=== PATIENT | male | born 1970 | race Caucasian/White ===

== ENCOUNTER 2017-07-27 10:23 | Observation (INO) ==
--- NOTE | 2017-07-27 10:32 | Emergency Department Note ---
Disposition Clinical Impression: Change in vision TIA (transient ischemic attack) Qualifiers: Transient cerebral ischemia type: unspecified Qualified Code(s): G45.9 - Transient cerebral ischemic attack, unspecified Disposition: Admitted As Inpatient Condition: Good Referrals: Ghassan Shore MD [Primary Care Provider] - Forms: ED Satisfaction Letter Time of Disposition: 12:42 Eye Problem HPI - General Chief complaint: ED Eye Problems Stated complaint: blurred vision Time Seen by Provider: 07/27/17 10:26 Source: patient Mode of arrival: ambulatory Limitations: no limitations Nursing Notes Reviewed: Yes Vital Signs Reviewed: Yes - History of Present Illness HPI Narrative: Patient is a 47-year-old male with no past medical history. Presents today due to complaint of left vision change. He states that yesterday afternoon, he had sudden onset blurred vision of the left eye. He also had "white spots" in his vision. Denies any black spots or visual loss. He has had a mild left-sided headache at that time. Denies any numbness, tingling, weakness, any other chest pain, shortness of breath, nausea, vomiting, fevers, diarrhea, neck pain, abdominal pain. He states that this episode lasted for about 45 minutes and then went away. He says that his vision is improved today but is concerned for possible stroke and is requesting a head CT scan. - Related Data Home Medications Medication Instructions Recorded Confirmed Amlodipine Besylate [Amlodipine 10 mg PO DAILY 07/27/17 07/27/17 Besylate] Aspirin [Lo-Dose Aspirin EC] 81 mg PO DAILY 07/27/17 07/27/17 Losartan/Hydrochlorothiazide 1 tab PO DAILY 07/27/17 07/27/17 [Losartan-Hctz 100-25 mg Tab] Nebivolol HCl [Bystolic] 10 mg PO DAILY 07/27/17 07/27/17 Allergies Allergy/AdvReac Type Severity Reaction Status Date / Time No Known Allergies Allergy Verified 07/27/17 12:29 All systems ED: reviewed and negative except as stated. Constitutional: Denies: fever Eyes: Reports: vision change. Denies: eye pain Cardiovascular: Denies: chest pain Respiratory: Denies: cough, dyspnea, wheezes Gastrointestinal: Denies: abdominal pain, nausea, vomiting, diarrhea Genitourinary: Denies: urgency, dysuria, frequency Musculoskeletal: Denies: back pain, neck pain Neurological: Denies: headache, weakness, numbness, paresthesias Past Medical History - Past Medical History Attestation: Yes The following information was validated with the patient. Source: patient Medical history: Reports: non-contributory - Social History Smoking Status: Never smoker Smokeless Tobacco Status: No Alcohol use: Reports: none Physical Exam - General Limitations: no limitations General appearance: alert, in no apparent distress - Head Head exam: atraumatic, normocephalic, normal inspection - Eye Eye exam: Present: normal appearance, PERRL, EOMI - Expanded Eye Exam Eyelids: bilateral: normal inspection Pupils: Bilateral: regular, round Sclera/Conjunctival: bilateral: normal inspection Cornea: bilateral: Normal Inspection Visual acuity (R) = 20/: 20 Visual acuity (L) = 20/: 25 IOP (R) in mmH IOP (L) in mmH IOP measured with: Tonopen - ENT ENT exam: normal exam, normal oropharynx, mucous membranes moist - Neck Neck exam: Present: normal inspection, full ROM, trachea midline - Chest Chest inspection: Present: normal inspection, symmetric chest wall rise - Respiratory Respiratory exam: Present: normal lung sounds bilaterally - Cardiovascular Cardiovascular exam: Present: regular rate, normal rhythm, normal heart sounds - Abdominal Exam Abdominal exam: Present: soft, Non-Tender. Absent: tenderness, distention, guarding, rebound, rigidity - Extremities Exam Extremities exam: Present: normal inspection, full ROM. Absent: tenderness, pedal edema - Neurological Exam Neurological exam: Present: alert, oriented X3, CN II-XII intact. Absent: motor sensory deficit - Expanded Neurological Exam Patient oriented to: Present: person, place, time Speech: Present: fluid speech Cranial nerves: EOM function (II, III, IV, ): Normal, facial sensation (V): Normal, facial palsy (VII): Normal, spinal accessory function (XI): Normal, tongue deviation (XII): Normal Motor strength - LUE: 5/5 Motor strength - RUE: 5/5 Motor strength - LLE: 5/5 Motor strength - RLE: 5/5 Sensory exam upper extremity: light touch: Normal Sensory exam lower extremity: light touch: Normal Coma Scale Eye Opening: Spontaneous Coma Scale Motor Response: Obeys Commands Coma Scale Verbal Response: Oriented Coma Scale Total: 15 - Psychiatric Psychiatric exam: Present: normal affect, normal mood - Skin Skin exam: Present: warm, dry, intact, normal color Course Course Narrative: Procedure: OCular US Indication: left eye vision change Findings: optic nerve on right 5.5mm, optic nerve on left 5mm; no evidence of retinal detachment bilaterally I pressures measured bilaterally, right eye pressures 16, left eye pressure 24. We discussed concern for glaucoma. There are no signs of any acute angle closure glaucoma, no treatment required at this time in the emergency department. We discussed having him follow-up with ophthalmology for further assessment and care for this issue. Ultrasound showed no signs of retinal detachment or optic nerve enlargement. CT the head was negative for any acute process. Patient will be admitted to hospitalist for further TIA workup. Vital Signs Temperature 98.4 F 07/27/17 10:26 Pulse Rate 72 07/27/17 10:26 Respiratory Rate 20 07/27/17 10:26 Blood Pressure 146/79 07/27/17 10:26 O2 Sat by Pulse Oximetry 95 07/27/17 10:26 Temperature 98.4 F 07/27/17 10:32 Pulse Rate 68 07/27/17 12:21 Respiratory Rate 18 07/27/17 12:21 Blood Pressure 145/84 07/27/17 12:21 O2 Sat by Pulse Oximetry 98 07/27/17 12:21 Oxygen Delivery Oxygen Delivery Room Air Eye - MDM Narrative Medical decision making narrative: Procedure: OCular US Indication: left eye vision change Findings: optic nerve on right 5.5mm, optic nerve on left 5mm; no evidence of retinal detachment bilaterally I pressures measured bilaterally, right eye pressures 16, left eye pressure 24. We discussed concern for glaucoma. There are no signs of any acute angle closure glaucoma, no treatment required at this time in the emergency department. We discussed having him follow-up with ophthalmology for further assessment and care for this issue. Ultrasound showed no signs of retinal detachment or optic nerve enlargement. CT the head was negative for any acute process. Patient will be admitted to hospitalist for further TIA workup. - Lab Data Result diagrams: 07/27/17 11:21 07/27/17 11:21 Lab Results 07/27/17 07/27/17 Range/Units 11:21 11:21 WBC 7.5 (4.3-11.1) K/mcL RBC 4.97 (4.19-5.50) M/mcL Hgb 15.3 (12.9-16.9) g/dL Hct 42.1 (37.5-50.1) % MCV 84.7 (83.0-100.0) fL MCH 30.8 (28.0-33.3) pg MCHC 36.3 H (31.6-35.5) g/dL RDW 13.1 (11.5-14.5) % Plt Count 293 (140-400) K/mcL MPV 9.4 (9.4-12.4) fL Immature Gran % 0.3 (0-4) % Seg Neutrophils % 54.7 % Lymphocytes % 34.0 % Monocytes % 9.2 % Eosinophils % 1.5 % Basophils % 0.3 % Neutrophils # 4.1 (1.6-8.9) K/mcL Lymphocytes # 2.5 (0.6-4.6) K/mcL Monocytes # 0.7 (0.0-1.3) K/mcL Eosinophils # 0.1 (0.0-0.6) K/mcL Basophils # 0.0 (0.0-0.2) K/mcL Sodium 137 (136-145) mEq/L Potassium 3.7 (3.5-5.1) mEq/L Chloride 104 (98-107) mEq/L Carbon Dioxide 27 (23-29) mEq/L BUN 16 (6-20) mg/dL Creatinine 0.81 (0.70-1.30) mg/dL Est GFR ( Amer) > 60 (> 60) Est GFR (Non-Af Amer) > 60 (> 60) BUN/Creatinine Ratio 20 (6-26) Glucose 101 (70-105) mg/dL Calculated Osmolality 285 (280-300) Calcium 10.0 (8.6-10.3) mg/dL S.B.A.RMikayla - S.Tony.Jacinta Situation: Demographics, MOA Background: Presenting Complaint, Relevant PMH, Meds, & Allergies Assessment: Vital Signs, Course and respsone to treatment, Exam Concerns, Patient/Family Expectation, Pertinant Lab Results, Outstanding Labs Recommendation: Barrier(s) to disposition, Recommendation based on pending studies, treatments, or consults S.B.A.RMikayla Report Given to: Dr. Marion Diaz Repor Time: 12:42 NIH Stroke Scale - Level of Consciousness LOC: Alert - LOC Questions LOC Questions: Answers both correctly - LOC Commands LOC Commands: Performs both correctly - Best Gaze Best Gaze: Normal - Visual Visual: No visual loss - Facial Palsy Facial Palsy: Normal - Motor Arms Motor Arm-Left: No drift for 10 seconds Motor Arm-Right: No drift for 10 seconds - Motor Legs Motor Leg-Left: No drift for 5 seconds Motor Leg-Right: No drift for 5 seconds - Limb Ataxia Limb Ataxia: Absent of affected limb too weak to perform exam - Sensory Sensory: Normal - Best Language Best Language: No aphasia - Dysarthria Dysarthria: Normal - Extinction and Inattention Extinction and Inattention: Normal - NIHSS Total Score NIHSS Total Score: 0
[2017-07-27] MEDS ORDERED: Tetracaine 0.5% OPTH 80 DROP/4 ML BOTTLE LEFT EYE ONE (10:46)
[2017-07-27] MEDS ORDERED: Tetracaine 0.5% OPTH 80 DROP/4 ML BOTTLE RIGHT EYE ONE (10:47)
[2017-07-27 11:48] LABS: Basophils % 0.3 %; Eosinophils # 0.1 K/mcL (0.0-0.6); Eosinophils % 1.5 %; Hematocrit 42.1 % (37.5-50.1); Hemoglobin 15.3 g/dL (12.9-16.9); Immature Granulocytes % 0.3 % (0-4); Lymphocytes # 2.5 K/mcL (0.6-4.6); Mean Corpuscular HGB Conc 36.3 g/dL (31.6-35.5); Mean Corpuscular Hemoglobin 30.8 pg (28.0-33.3); Mean Corpuscular Volume 84.7 fL (83.0-100.0); Mean Platelet Volume 9.4 fL (9.4-12.4); Monocytes # 0.7 K/mcL (0.0-1.3); Monocytes % 9.2 %; Neutrophils # 4.1 K/mcL (1.6-8.9); Platelet Count 293 K/mcL (140-400); Red Blood Count 4.97 M/mcL (4.19-5.50); Red Cell Distribution Width 13.1 % (11.5-14.5); Segmented Neutrophils % 54.7 %
--- NOTE | 2017-07-27 12:13 | Emergency Department Note ---
Disposition Clinical Impression: TIA (transient ischemic attack) Qualifiers: Transient cerebral ischemia type: unspecified Qualified Code(s): G45.9 - Transient cerebral ischemic attack, unspecified Disposition: Admitted As Inpatient Referrals: Ghassan Shore MD [Primary Care Provider] - Forms: ED Satisfaction Letter General Adult HPI - General Chief complaint: ED Eye Problems Stated complaint: blurred vision Time Seen by Provider: 07/27/17 10:26 Source: patient Mode of arrival: ambulatory Limitations: no limitations - History of Present Illness Pain Scale: 0 - Related Data Home Medications Medication Instructions Recorded Confirmed Blood Pressure Medication 07/26/17 Allergies Allergy/AdvReac Type Severity Reaction Status Date / Time No Known Allergies Allergy Verified 07/26/17 16:10 Constitutional: Denies: fever Eyes: Reports: vision change. Denies: eye pain Cardiovascular: Denies: chest pain Respiratory: Denies: cough, dyspnea, wheezes Gastrointestinal: Denies: abdominal pain, nausea, vomiting, diarrhea Genitourinary: Denies: urgency, dysuria, frequency Musculoskeletal: Denies: back pain, neck pain Neurological: Denies: headache, weakness, numbness, paresthesias Past Medical History - Past Medical History Medical history: Reports: non-contributory Psychiatric history: Reports: no psych history - Social History Smoking Status: Never smoker Smokeless Tobacco Status: No Alcohol use: Reports: none Drug use: Reports: none Physical Exam - General Limitations: no limitations General appearance: alert, in no apparent distress Course Vital Signs Temperature 98.4 F 07/27/17 10:26 Pulse Rate 72 07/27/17 10:26 Respiratory Rate 20 07/27/17 10:26 Blood Pressure 146/79 07/27/17 10:26 O2 Sat by Pulse Oximetry 95 07/27/17 10:26 Temperature 98.4 F 07/27/17 10:32 Pulse Rate 56 07/27/17 11:43 Respiratory Rate 18 07/27/17 11:43 Blood Pressure 144/87 07/27/17 11:43 O2 Sat by Pulse Oximetry 98 07/27/17 11:43 Oxygen Delivery Oxygen Delivery Room Air Medical Decision Making - Lab Data Result diagrams: 07/27/17 11:21 Lab Results 07/27/17 Range/Units 11:21 WBC 7.5 (4.3-11.1) K/mcL RBC 4.97 (4.19-5.50) M/mcL Hgb 15.3 (12.9-16.9) g/dL Hct 42.1 (37.5-50.1) % MCV 84.7 (83.0-100.0) fL MCH 30.8 (28.0-33.3) pg MCHC 36.3 H (31.6-35.5) g/dL RDW 13.1 (11.5-14.5) % Plt Count 293 (140-400) K/mcL MPV 9.4 (9.4-12.4) fL Immature Gran % 0.3 (0-4) % Seg Neutrophils % 54.7 % Lymphocytes % 34.0 % Monocytes % 9.2 % Eosinophils % 1.5 % Basophils % 0.3 % Neutrophils # 4.1 (1.6-8.9) K/mcL Lymphocytes # 2.5 (0.6-4.6) K/mcL Monocytes # 0.7 (0.0-1.3) K/mcL Eosinophils # 0.1 (0.0-0.6) K/mcL Basophils # 0.0 (0.0-0.2) K/mcL Attestation Statement - Attestation Attestation: I examined this patient and my medical decision-making was reviewed with the Resident Physician. I agree with the documented findings, disposition and treatment plan as described except to the extent set forth below. 47 year old male presents to the eD with complanitso f blurred vision and headache which have resoved completely. He sttes that he has had headache that woke up him from sleep last night located in the left temporal area and that it was retroorbital but then developed blurred vision and his IOP inthe left side is 24 and right side is 17. WE will admit to medicine for TIA r/o CVA. HCT (-) US is negative for retinal detachement/optic nerve swelling
[2017-07-27 12:39] LABS: BUN/Creatinine Ratio 20 (6-26); Blood Urea Nitrogen 16 mg/dL (6-20); Carbon Dioxide 27 mEq/L (23-29); Chloride 104 mEq/L (98-107); Glucose 101 mg/dL (70-105); Osmolality,Calculated 285 (280-300); Potassium 3.7 mEq/L (3.5-5.1); Sodium 137 mEq/L (136-145); eGFR For African Americans > 60 (> 60); eGFR For Non-African Americans > 60 (> 60)
[2017-07-27] MEDS ORDERED: Acetaminophen 325 MG TABLET PO PRN (14:01)
[2017-07-27] MEDS ORDERED: Naloxone 0.4 MG/ML INJ IVP PRN (14:01)
--- NOTE | 2017-07-27 15:02 | Internal Med History&Physical ---
<JoanrebamarkRomaine - Last Filed: 07/27/17 15:27> Date of Encounter: 07/27/17 Time of Encounter: 13:30 Internal Medicine - H&P: HPI Chief complaint: Vision changes Admitted From: Emergency Dept Plans for Post Hospital Care: Home History of present illness: Mr. Steven is a 47 year old male w/PMH of HTN presents from the ED w/CC of blurriness in his left eye yesterday afternoon for 45 minutes. Sx resolved after 45 minutes. Denies previous occurrence. No aggravating/alleviating factors. Mild GARCIA w/sx. Denies focal weakness, facial droop, or numbness/ tingling. Denies familial or personl hx of CVA/TIA. Patient denies recent illness, fever, chills, nausea, vomiting, chest pain, palpitations, unusual bleeding, abdominal pain, diarrhea, constipation, numbness, tingling, dizziness , lightheadedness, pre-syncope, or syncope. Past Med Surg Social Fam HX - Past Medical History Source: patient, old records reviewed, obtained from family Medical history: hypertension Psychiatric history: no psych history - Social History Smoking Status: Never smoker Smokeless Tobacco Status: No Alcohol use: none Drug use: none Current living situation: Home, With Family Activity Level: Independent ambulation Recent Out of Country Travel Within the Last 8 Weeks: No Exposure or Possible Exposure to Illness During Travel: No - Family History Father Race: Family Member Ethnicity: Non- Twin of Family Member: Yes Living Status: Age at : 77 Cause of : Prostate cancer Hx Family Cancer: Yes (Prostate ) Mother Race: Family Member Ethnicity: Non- Living Status: Still Living Hx Family Cardiac Disorders: Yes (HTN) Hx Family Endocrine Disorder: Yes (DM) Brother Race: Family Member Ethnicity: Non- Living Status: Age at : 62 Cause of : Prostate cancer Hx Family Cancer: Yes (Prostate) Sister Race: Family Member Ethnicity: Non- Living Status: Still Living Hx Family Medical Disorders: No Internal Medicine - H&P: Meds Amlodipine Besylate [Amlodipine Besylate] 10 mg PO DAILY 07/27/17 [History] Aspirin [Lo-Dose Aspirin EC] 81 mg PO DAILY 07/27/17 [History] Losartan/Hydrochlorothiazide [Losartan-Hctz 100-25 mg Tab] 1 tab PO DAILY [History] Nebivolol HCl [Bystolic] 10 mg PO DAILY 07/27/17 [History] 3 Allergy/AdvReac Type Severity Reaction Status Date / Time No Known Allergies Allergy Verified 07/27/17 12:29 All Systems PM: A 10-system review of systems was performed and is negative for pertinent findings except as documented above in the HPI. - Constitutional Constitutional: as per HPI, no chills, no fever(s), no night sweats - EENT Eyes: as per HPI (Blurriness in left eye), change in vision, no discharge, no pain, no photophobia Ears: no ear discharge, no ear pain, no tinnitus Nose, mouth and throat: no dysphagia, no nasal discharge, no neck pain, no sore throat - Breasts Breasts: as per HPI - Cardiovascular Cardiovascular ROS IM: no chest pain, no diaphoresis, no dyspnea, no lightheadedness, no palpitations, no syncope - Respiratory Respiratory: no cough, no dyspnea, no wheezing, no excessive phlegm production - Gastrointestinal Gastrointestinal: no abdominal pain, no diarrhea, no hematemesis, no hematochezia, no melena, no nausea, no vomiting - Genitourinary Genitourinary ROS male: as per HPI - Musculoskeletal Musculoskeletal ROS IM: no numbness, no tingling - Integumentary Integumentary IM: no rash, no unusual bruising - Neurological Neurological ROS: no confusion, no convulsions, no focal weakness, no numbness, no tingling, no tremor(s) - Psychiatric Psychiatric: as per HPI - Endocrine Endocrine IM: as per HPI - Hematologic/Lymphatic Hematologic/Lymphatic: no easy bruising - Allergic/Immunologic Allergic/Immunologic: as per HPI - Constitutional Vitals: Temp Pulse Resp BP Pulse Ox 98.0 F 57 12 144/85 95 07/27/17 13:21 07/27/17 13:21 07/27/17 13:21 07/27/17 13:21 07/27/17 13:21 General appearance: Present: cooperative, A&O X 3, pleasant, no acute distress, obese, answers questions appropriately - Head Head exam: Present: atraumatic, normocephalic - Eye Eye exam: Present: PERRL, conjuntiva pink, sclera anicteric Pupils: Present: PERRL - ENT ENT exam: Present: normal exam - Neck Neck exam general surgery: Present: normal inspection, supple, trachea midline. Absent: lymphadenopathy - Respiratory Respiratory exam: Present: CTAB. Absent: accessory muscle use, rales, rhonchi, wheezes - Cardiovascular Cardiovascular exam: Present: RRR, +S1, +S2. Absent: diastolic murmur, gallop, rubs, systolic murmur - GI/Abdominal GI/Abdominal exam: Present: normal bowel sounds, soft, no peritoneal signs. Absent: distended, tenderness - Rectal Rectal exam: Present: deferred - Additional comments: exam deferred. - Extremities Exam Extremities exam: Present: warm, radial pulses palpable and symmetrical. Absent : calf tenderness, cyanotic, pedal edema - Back Exam Back exam: Present: normal inspection - Neurological Exam Neurological exam: Present: CN II-XII intact, oriented X3, no focal deficits. Absent: pronater drift, facial droop, speech deficit - Psychiatric Psychiatric exam: Present: normal affect, normal mood - Skin Skin exam: Present: dry, intact Internal Med - H&P Results - Labs CBC & Chem 7: 07/27/17 11:21 07/27/17 11:21 - EKG Data EKG shows normal: sinus rhythm Rate: normal - EKG Data Prior EKG available for review: no Interpretation IM: normal EKG - Diagnostic Studies CT scan - head Additional comments: Impressions Head CT 07/27/17 10:45 IMPRESSION: No acute intracranial abnormality. D/ / Papo Hemphill MD / Papo Hemphill MD Interpreting Provider: Papo Hemphill MD - Assessment and plan (1) Vision blurred Current Visit: Yes Status: Acute Assessment and plan: Acute blurry vision in left eye yesterday for 45 minutes. Sx resolved. No prior occurrence. TIA versus intra-ocular pressure disturbance in left eye. On exam, pt. is neurologically intact w/o focal deficits, pronator drift, facial droop, or slurred speech. Strengths equal bilaterally. CT of the head/brain unremarkable. MRI of head/brain ordered. Bilateral carotid Doppler imaging ordered. Continuous cardiac telemetry. Neuro checks Q4HR. Modified NIHSS ordered in ED. Consider Neurology consult if MRI results abnormal. Pt. discussed w/Dr. Munoz who agrees w/plan of care. Pt. is low risk for further morbidity and neurological changes based on sx yesterday and hx of HTN. Observation. (2) HTN (hypertension) Current Visit: Yes Status: Chronic Assessment and plan: Hx of chronic HTN. Hold BP medications today to allow for permissive HTN until results of MRI are known. Will resume pts. Amlodipine, Hyzaar, and Bystolic on if MRI results unremarkable. Monitor pt. and VS. Qualifiers: Hypertension type: essential hypertension Qualified Code(s): I10 - Essential (primary) hypertension (3) DVT prophylaxis Current Visit: Yes Status: Acute Assessment and plan: Bilateral SCDs on LEs for DVT prophylaxis for now d/t possible infarct/ ischemia. MRI of head/brain ordered. Will convert to Lovenox if MRI results unremarkable. - Time Spent With Patient Total time spent is greater than 50% in coordination of care (as documented) at patient's floor/unit and/or counseling patient: Greater than 35 minutes <Sanford Munoz P - Last Filed: 07/28/17 10:53> Date of Encounter: 07/28/17 Internal Medicine - H&P: HPI History of present illness: Mr. Steven is a 47 year old male All Systems PM: A 10-system review of systems was performed and is negative for pertinent findings except as documented above in the HPI. - Constitutional Vitals: Temp Pulse Resp BP Pulse Ox 98.1 F 62 20 106/66 95 07/28/17 07:06 07/28/17 07:06 07/28/17 07:06 07/28/17 07:06 07/28/17 07:06 Internal Med - H&P Results - Labs CBC & Chem 7: 07/28/17 02:30 07/28/17 02:30 Labs: Short CBC 07/28/17 Range/Units 02:30 WBC 8.6 (4.3-11.1) K/mcL Hgb 14.7 (12.9-16.9) g/dL Hct 42.3 (37.5-50.1) % Plt Count 272 (140-400) K/mcL Neutrophils # 4.6 (1.6-8.9) K/mcL BMP 07/28/17 02:30 Sodium 140 Potassium 3.8 Chloride 106 Carbon Dioxide 28 BUN 16 Creatinine 0.82 Glucose 111 H Calcium 9.2 Cardiac Enzymes 07/27/17 07/27/17 07/28/17 Range/Units 14:40 20:39 02:30 Troponin I < 0.03 < 0.03 < 0.03 (< 0.04) ng/mL Liver Function 07/28/17 Range/Units 02:30 Total Bilirubin 0.4 (0.3-1.0) mg/dL AST 15 (13-39) Units/L ALT 26 (7-52) Units/L Alkaline Phosphatase 66 (34-104) Units/L Albumin 3.9 (3.5-5.7) g/dL - Impressions ITS Impressions Brain MRI 07/27/17 14:07 IMPRESSION: Small focus of increased T2/FLAIR signal in the right frontal cortex on axial FLAIR image 21. This is indeterminate and may be artifactual or due to a prior insult. There is no acute infarct or hemorrhage D/ / Salazar Umaña / Salazar Umaña Interpreting Provider: Salazar Umaña - Attending Attestation I examined this patient and my medical decision-making was reviewed with the Resident Physician/WOOL BUYER. I agree with the documented findings, disposition and treatment plan as described except to the extent set forth below. seen and examined agree with plan - Assessment and plan (1) Vision blurred Current Visit: Yes Status: Acute (2) HTN (hypertension) Current Visit: Yes Status: Chronic Qualifiers: Hypertension type: essential hypertension Qualified Code(s): I10 - Essential (primary) hypertension (3) DVT prophylaxis Current Visit: Yes Status: Acute - Time Spent With Patient Total time spent is greater than 50% in coordination of care (as documented) at patient's floor/unit and/or counseling patient:
[2017-07-28 02:48] LABS: Basophils % 0.3 %; Eosinophils # 0.2 K/mcL (0.0-0.6); Eosinophils % 2.2 %; Hematocrit 42.3 % (37.5-50.1); Hemoglobin 14.7 g/dL (12.9-16.9); Immature Granulocytes % 0.2 % (0-4); Lymphocytes # 3.1 K/mcL (0.6-4.6); Lymphocytes % 36.3 %; Mean Corpuscular HGB Conc 34.8 g/dL (31.6-35.5); Mean Corpuscular Hemoglobin 29.8 pg (28.0-33.3); Mean Corpuscular Volume 85.6 fL (83.0-100.0); Mean Platelet Volume 9.3 fL (9.4-12.4); Monocytes # 0.7 K/mcL (0.0-1.3); Monocytes % 7.9 %; Neutrophils # 4.6 K/mcL (1.6-8.9); Platelet Count 272 K/mcL (140-400); Red Blood Count 4.94 M/mcL (4.19-5.50); Red Cell Distribution Width 13.2 % (11.5-14.5); Segmented Neutrophils % 53.1 %
[2017-07-28 03:02] LABS: Alanine Aminotransferase 26 Units/L (7-52); Albumin 3.9 g/dL (3.5-5.7); Albumin/Globulin Ratio 1.6 (1.1-2.2); Alkaline Phosphatase 66 Units/L (34-104); Aspartate Amino Transferase 15 Units/L (13-39); BUN/Creatinine Ratio 20 (6-26); Bilirubin,Total 0.4 mg/dL (0.3-1.0); Blood Urea Nitrogen 16 mg/dL (6-20); Calcium 9.2 mg/dL (8.6-10.3); Carbon Dioxide 28 mEq/L (23-29); Chloride 106 mEq/L (98-107); Chol/HDL Ratio 3.5 (0-4.9); Cholesterol 116 mg/dL (< 200); Globulin 2.5 g/dL (2.4-3.5); Glucose 111 mg/dL (70-105); HDL Cholesterol 33 mg/dL (40-59); LDL Cholesterol,Calculated 68 mg/dL (0-99); Magnesium 1.9 mg/dL (1.6-2.6); Osmolality,Calculated 292 (280-300); Potassium 3.8 mEq/L (3.5-5.1); Sodium 140 mEq/L (136-145); Total Protein 6.4 g/dL (6.4-8.9); Triglycerides 76 mg/dL (< 150); eGFR For African Americans > 60 (> 60); eGFR For Non-African Americans > 60 (> 60)
[2017-07-28 08:40] LABS: Estimated Average Glucose 137 mg/dl; Hemoglobin A1C 6.4 %
[2017-07-28] MEDS ORDERED: Losartan/HCTZ 50-12.5 TABLET PO SCH (09:00)
[2017-07-28] MEDS ORDERED: amLODIPine 5 MG TABLET PO SCH (09:00)
[2017-07-28] MEDS ORDERED: Aspirin Enteric Coated 81 MG Tablet PO SCH (09:00)
[2017-07-28 11:17] VITALS: BP 107/67
--- NOTE | 2017-07-28 11:40 | Discharge Summary ---
- NOTES TO OUTPATIENT PROVIDER Notes to Outpatient Provider: New diagnosis of prediabetes. Lifestyle modification encouraged. Follow-up with primary care physician. Orders not resulted at time of discharge: Pending orders 07/29/17 04:00 Complete Blood Count [HEME] AM 0400 Comprehensive Metabolic Panel AM 0400 07/30/17 04:00 Complete Blood Count [HEME] AM 0400 Comprehensive Metabolic Panel AM 0400 Date of Encounter: 07/28/17 Time of Encounter: 12:04 - Discharge Diagnosis (1) TIA (transient ischemic attack) Priority: Primary Status: Suspected Qualifiers: Transient cerebral ischemia type: unspecified Qualified Code(s): G45.9 - Transient cerebral ischemic attack, unspecified (2) Vision blurred Priority: Primary Status: Resolved (3) HTN (hypertension) Priority: Secondary Status: Chronic Qualifiers: Hypertension type: essential hypertension Qualified Code(s): I10 - Essential (primary) hypertension (4) DVT prophylaxis Priority: Primary Status: Resolved Hospital course: Mr. Steven is a 47 year old male with medical history of hypertension, hyperlipidemia who was admitted following concerns of blurriness in his left eye yesterday afternoon for 45 minutes. Sx resolved after 45 minutes. Denies previous occurrence. No aggravating/alleviating factors. Mild GARCIA w/sx. Denies focal weakness, facial droop, or numbness/tingling. Denies familial or personl hx of CVA/TIA. Patient denies recent illness, fever, chills, nausea, vomiting, chest pain, palpitations, unusual bleeding, abdominal pain, diarrhea, constipation, numbness, tingling, dizziness, lightheadedness, pre-syncope, or syncope. Workup on admission including complete blood count, chemistry, lipid panel, troponins, carotid Doppler ultrasound, unremarkable. MRI ruled out for CVA. Patient's symptoms have resolved and he has no neurologic deficits. A1c was 6.4. Excellent patient educated about the diagnosis of prediabetes, left sternal modification encouraged. Follow-up with primary care physician. He is on home ASA, continue same Discharge discussed with: patient, nurse - Time Spent with Patient Total time spent providing and/or coordinating discharge services: Less than 30 minutes - Discharge Medications Home Medications: Amlodipine Besylate [Amlodipine Besylate] 10 mg PO DAILY 07/27/17 [History] Aspirin [Lo-Dose Aspirin EC] 81 mg PO DAILY 07/27/17 [History] Losartan/Hydrochlorothiazide [Losartan-Hctz 100-25 mg Tab] 1 tab PO DAILY [History] Nebivolol HCl [Bystolic] 10 mg PO DAILY 07/27/17 [History] Allergies/Adverse Reactions: 3 Allergy/AdvReac Type Severity Reaction Status Date / Time No Known Allergies Allergy Verified 07/27/17 12:29 Date of admission: 07/27/17 12:51 Primary care physician: Ghassan Shore MD Consults: 07/27/17 14:04 Consult to [employer] [CONS] Routine Reason for SW Consult: Please assess patient for possible home needs for post -discharge planning. Discharging clinician: Theodore Graham Anticipated date of discharge: 07/28/17 - Constitutional Vitals: Temp Pulse Resp BP Pulse Ox 98.2 F 70 20 107/67 98 07/28/17 11:16 07/28/17 11:16 07/28/17 11:16 07/28/17 11:16 07/28/17 11:16 General appearance: Present: cooperative, A&O X 3, pleasant, no acute distress, obese, answers questions appropriately - Head Head exam: Present: atraumatic, normocephalic - Eye Eye exam: Present: PERRL, conjuntiva pink, sclera anicteric Pupils: Present: PERRL - Neck Neck exam general surgery: Present: supple, trachea midline. Absent: lymphadenopathy - Respiratory Respiratory exam: Present: CTAB. Absent: accessory muscle use, rales, rhonchi, wheezes - Cardiovascular Cardiovascular exam: Present: RRR, +S1, +S2. Absent: diastolic murmur, gallop, rubs, systolic murmur - GI/Abdominal GI/Abdominal exam: Present: normal bowel sounds, soft, no peritoneal signs. Absent: distended, tenderness - Extremities Exam Extremities exam: Present: warm, radial pulses palpable and symmetrical. Absent : calf tenderness, cyanotic, pedal edema - Neurological Exam Neurological exam: Present: alert, CN II-XII intact, oriented X3, no focal deficits. Absent: pronater drift, facial droop, speech deficit - Skin Skin exam: Present: dry, intact - Patient Status Disposition: Home, Self-Care Condition: Good Functional capacity at discharge: independent ambulation Overall status at discharge: patient is back to baseline - Discharge Instructions Follow Up With: Ghassan Shore MD [Primary Care Provider] - - Diet and Activity Activity: resume usual activities as tolerated Diet: diabetic diet, low salt diet
--- NOTE | 2017-07-29 15:33 | Electrocardiograph Report ---
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
== END 2017-07-28 12:30 | disposition home or self-care (01) ==
LOC: 3BNU 10:23 → EMEROO 10:23 → 3BNU 12:51 → SUATTDRO 12:51 → 3BNU 13:10
PROVIDERS: ADMIT Hospitalist; ATTEND Internal Medicine